=== PATIENT | female | born 1960 | race Caucasian/White ===

== ENCOUNTER → 2016-08-09 | Outpatient (CLI) | payer BC ==
[~2016-08-09] MED LIST: ADVIN10/60 INH; ALBU1AER9 INH; ASCO10003 PO; ASPI325T39 PO; B-COCAP2 PO; CHOL1TAB42 PO; CLB/200 PO; ESCI10TA17 PO; FOLI800T PO; HYDR-5688 PO; LISI-461 PO; MULT-506 PO; OMEGA 31000 MG PO; OXYSR10 PO; PANT1TAB48 PO; SIMV40TA2 PO; SYN125 PO
--- NOTE | 2016-08-09 12:52 | MAMMOGRAPHY REPORT ---
BILATERAL DIGITAL SCREENING MAMMOGRAM WITH CAD: 08/09/2016 CLINICAL HISTORY: Routine screening. Patient has no complaints. TECHNIQUE: Current study was also evaluated with a Computer Aided Detection (CAD) system. Bilatera l CC and MLO views were obtained. COMPARISON: Comparison is made to exams dated: 08/07/2015 mammogram, 08/02/2013 mammogram, 08/03/2014 m ammogram, 07/24/2012 mammogram, 07/19/2011 mammogram, and 07/10/2009 mammogram - [facility] enter. BREAST COMPOSITION: There are scattered areas of fibroglandular density in both breasts. FINDINGS: No suspicious masses, calcifications, or areas of architectural distortion are noted in e ither breast. There has been no significant interval change compared to prior exams. Focal asymmetr y in the right upper outer quadrant is stable. Again noted is a biopsy marker clip in the right upp er outer quadrant. A few scattered bilateral benign-appearing calcifications are stable. IMPRESSION: ACR BI-RADS CATEGORY 2: BENIGN There is no mammographic evidence of malignancy. A 1 year screening mammogram is recommended. The p atient will receive written notification of the results. Approximately 10% of breast cancers are not detected with mammography. A negative mammographic repor t should not delay biopsy if a clinically suggestive mass is present. Leigh Mendez M.D. /:08/09/2016 07:52:34 Viscose Cellar Worker: Harshil LEON)(Crystal), [facility] letter sent: Normal 1/2 BI-RADS Code: ACR BI-RADS Category 2: Benign
== END | disposition home or self-care (01) ==
LOC: C.MAMM 07:06
PROVIDERS: ATTEND Obstetrics & Gynecology
DX: Z12.31 Encounter for screening mammogram for malignant neoplasm of breast (principal)

== ENCOUNTER → 2016-08-14 | Outpatient (CLI) | payer BC ==
[2016-08-14 13:28] LABS: URINE APPEARANCE CLEAR (CLEAR); URINE BILIRUBIN NEG (NEG); URINE COLOR YELLOW; URINE NITRITE NEG (NEG); URINE PH 6.5 (4.5-7.5); URINE SPECIFIC GRAVITY 1.003 (1.000-1.030); UROBILINOGEN NEG (NEG)
[2016-08-14 13:31] LABS: MANUAL MICROSCOPIC REQUIRED? NO; REVIEW REQ? NO
== END | disposition home or self-care (01) ==
LOC: C.LABBC 10:00
PROVIDERS: ATTEND Internal Medicine
DX: R30.0 Dysuria (principal)

== ENCOUNTER → 2017-02-10 | Outpatient (CLI) | payer BC ==
[2017-02-10 09:45] LABS: ALT/SGPT 30 U/L (12-78); BLOOD UREA NITROGEN 29 mg/dl (7-18); BUN/CREATININE RATIO 32.1 (10-20); CALCIUM 8.4 mg/dl (8.5-10.1); CARBON DIOXIDE 28 mmol/L (21-32); CHLORIDE 108 mmol/L (98-107); CHOLESTEROL 205 mg/dl (0-200); CREATININE 0.89 mg/dl (0.60-1.20); GLUCOSE 88 mg/dl (70-99); SODIUM 143 mmol/L (136-145)
[2017-02-10 09:55] LABS: ALB/GLOB RATIO 1.2 (0.9-2); ALKALINE PHOSPHATASE 57 U/L (45-117); AST/SGOT 19 U/L (15-37); CHOLESTEROL/HDL RATIO 3.5; HDL CHOLESTEROL 58 mg/dl; LDL CHOLESTEROL CALCULATED 129 mg/dl; TRIGLYCERIDES 92 mg/dl (0-150); VERY LOW DENSITY LIPOPROT CALC 18 mg/dl
== END | disposition home or self-care (01) ==
LOC: C.LAB 06:42
PROVIDERS: ATTEND Internal Medicine
DX: Z11.59 Encounter for screening for other viral diseases (principal); E03.9 Hypothyroidism, unspecified

== ENCOUNTER 2017-06-17 06:54 | Inpatient (IN) | payer BC ==
[2017-05-22 12:22] VITALS: Ht 154.9 cm; Wt 85.0 kg
[2017-05-22 12:29] LABS: BASO % 1.4 %; COMPLETE YES; EOS % 4.3 %; HEMATOCRIT 41.6 % (37-47); IG% 0.3 %; LYMPH % 38.1 %; LYMPH ABS # 2.66 K/uL (1.2-3.4); MEAN CELL VOLUME 93.7 fL (80-100); MEAN CORPUSCULAR HGB CONC 34.1 g/dl (32-36); MEAN PLATELET VOLUME 9.9 fL (7.4-10.4); MONO % 8.3 %; NEUT % 47.6 %; PLATELET COUNT 297 K/uL (130-400); RED BLOOD COUNT 4.44 M/uL (4.2-5.4); WHITE BLOOD COUNT 6.98 K/uL (4.8-10.8)
[2017-05-22 12:31] LABS: URINE APPEARANCE CLEAR (CLEAR); URINE BILIRUBIN NEG (NEG); URINE COLOR YELLOW; URINE NITRITE NEG (NEG); URINE PH 6.5 (4.5-7.5); UROBILINOGEN NEG (NEG)
[2017-05-22 12:35] LABS: MANUAL MICROSCOPIC REQUIRED? NO; REVIEW REQ? NO
[2017-05-22 12:45] LABS: INR 0.9 (0.9-1.1); PARTIAL THROMBOPLASTIN RATIO 1.1; PROTHROMBIN TIME (PATIENT) 9.9 SECONDS (9.0-12.0)
--- NOTE | 2017-05-22 12:56 | PAT Medication Instructions ---
Service Date May 22, 2017. Current Home Medication List Acetaminophen (Tylenol Arthritis Ext Rel), 1,300 MG PO QAM Acetaminophen/Diphenhydramine (Tylenol Pm), 2 TAB PO HS Albuterol Sulfate (Proair Respiclick), 2 PUFFS INH PRN B-Complex W/Biotin & Folic Aci (Super B-Complex), 1 TAB PO QAM Celecoxib (CeleBREX), 200 MG PO QAM Cholecalciferol (Vitamin D3), 1 TAB PO QAM Escitalopram (Lexapro), 10 MG PO QAM Fluticasone Prop/Salmeterol (Advair Diskus 100/50 60 Dose), 1 PUFF INH QAM Folic Acid (Folic Acid), 1 TAB PO QAM Levothyroxine Sodium (Levothyroxine Sodium), 1 TAB PO QAM Pantoprazole (Protonix), 40 MG PO QPM Simvastatin (Zocor), 40 MG PO QPM [Calcium Citrate], 630 MG PO QPM [Lisinopril Hctz], 1 TAB PO QAM [Potassium], 99 MG PO Q2D Medication Instructions For Your Scheduled Surgery - Follow your surgeon's instructions for: Celecoxib (CeleBREX), 200 MG PO QAM - Hold the following medications the morning of surgery: [Lisinopril Hctz], 1 TAB PO QAM Cholecalciferol (Vitamin D3), 1 TAB PO QAM Folic Acid (Folic Acid), 1 TAB PO QAM [Potassium], 99 MG PO Q2D B-Complex W/Biotin & Folic Aci (Super B-Complex), 1 TAB PO QAM - Take the following medications the morning of surgery with a sip of water: Escitalopram (Lexapro), 10 MG PO QAM Levothyroxine Sodium (Levothyroxine Sodium), 1 TAB PO QAM Fluticasone Prop/Salmeterol (Advair Diskus 100/50 60 Dose), 1 PUFF INH QAM Albuterol Sulfate (Proair Respiclick), 2 PUFFS INH PRN (if needed, and bring with you the morning of the surgery) Acetaminophen (Tylenol Arthritis Ext Rel), 1,300 MG PO QAM (if needed, can take up to four hours before surgery) - Take the following medications as scheduled the night before surgery: Pantoprazole (Protonix), 40 MG PO QPM Simvastatin (Zocor), 40 MG PO QPM [Calcium Citrate], 630 MG PO QPM Albuterol Sulfate (Proair Respiclick), 2 PUFFS INH PRN (if needed) Acetaminophen/Diphenhydramine (Tylenol Pm), 2 TAB PO HS If you have any questions please call us at [phone] or [phone] or [phone]
[2017-05-22 13:22] LABS: ESTIMATED AVERAGE GLUCOSE 108 mg/dl; HA1C FLAG Normal (Normal)
[2017-05-22 14:01] LABS: BUN/CREATININE RATIO 20.7 (10-20); CREATININE 0.95 mg/dl (0.60-1.20); POTASSIUM 3.7 mmol/L (3.5-5.1)
--- NOTE | 2017-05-22 14:02 | DIAGNOSTIC IMAGING REPORT ---
CHEST PREADMISSION(PA/LAT) HISTORY: 56 years-old Female PAT preoperative exam. No acute chest complaints. History of asthma. COMPARISON: Chest radiograph 11/22/2013 TECHNIQUE: Frontal and lateral views of the chest FINDINGS: Cardiac silhouette is upper limits of normal. There is no pneumothorax, pleural effusion, focal airspace consolidation or overt pulmonary edema. The bones of the chest are grossly intact. Multilevel degenerative changes of the spine are noted. Partially imaged fusion hardware of the lumbar spine. There is moderate volume of formed colonic stool within the imaged abdomen. IMPRESSION: No acute cardiopulmonary process. The above report was generated using voice recognition software. It may contain grammatical, syntax or spelling errors. Electronically signed by: Jason Alva M.D. 05/22/2017 2:01 PM Dictated Date/Time: 05/22/2017 2:00 PM
--- NOTE | 2017-05-27 16:32 | HISTORY & PHYSICAL EXAMINATION ---
DATE OF ADMISSION: 06/17/2017 CHIEF COMPLAINT: Left knee pain. HISTORY OF PRESENT ILLNESS: Ms. Sarmiento is a 56-year-old female with a 5+ year history of pain in her left knee. The patient states her pain has been worse for the last year. She rates her pain at 5/10. She has pain with her daily activities. She has limited standing and walking tolerance. Pain is worse with weightbearing. The patient has failed injections, bracing, PT, Tylenol, Celebrex and previous knee arthroscopy. She has failed conservative treatment and is now ready to proceed with left knee replacement. PAST MEDICAL HISTORY: Hypertension, hypercholesterolemia, heart murmur, thyroid disease, anxiety, acid reflux, and osteoarthritis. She denies heart disease, diabetes or DVT. PAST SURGICAL HISTORY: Hysterectomy, x2, multiple knee arthroscopies, spinal fusion, carpal tunnel release and right TKA. SOCIAL HISTORY: The patient denies alcohol or tobacco use. She lives in a 2-story home. She is functional on one floor. She is and works as a computer science professor. FAMILY HISTORY: Negative for DVT. MEDICATIONS: L-thyroxine 112 mcg daily, Celebrex 200 mg daily, citalopram 10 mg daily, lisinopril/HCTZ 10/12.5 mg daily, simvastatin 40 mg daily, pantoprazole 40 mg daily, calcium 630 mg daily, vitamin B super complex 1 daily, D3 at 1000 units daily, potassium 99 mg every other day, Tylenol Arthritis p.r.n. Tylenol PM p.r.n., and ProAir p.r.n. ALLERGIES: IVP DYE. REVIEW OF SYSTEMS: See HPI. Ten other systems reviewed, all negative. PHYSICAL EXAMINATION: VITAL SIGNS: Height 5 feet 1 inch, weight 186 pounds, and BMI is 35. GENERAL: This is a well-developed and well-nourished female, who is alert and oriented x3. Mood and affect are appropriate. HEENT: Normocephalic and atraumatic. Mucous membranes are moist and intact. NECK: Supple without lymphadenopathy. HEART: Regular rate and rhythm without murmurs, rubs or gallops. LUNGS: Clear to auscultation without wheezes or rhonchi. ABDOMEN: Soft and nontender. Bowel sounds are equal and active. EXTREMITIES: No ecchymosis, redness or warmth. She has neutral alignment. Range of motion is from 0-115 degrees with +1 laxity. She is neurovascularly intact with +5/5 strength. She has medial joint line tenderness. No distal edema. X-RAY EXAMINATION: AP and lateral views show joint space narrowing and osteophyte formation. IMPRESSION: Degenerative joint disease, left knee. PLAN: The patient will be admitted for a left total knee arthroplasty. We will plan on aspirin for DVT prophylaxis. The patient will have [facility] for home physical therapy. PCP is Dr. Velazquez.
[2017-06-17] VITALS (8 sets, daily range): BP systolic 100–135; BP diastolic 62–90; PULSE 57–80; TEMP 36.4–37; O2SAT 90–97
[~2017-06-17] VITALS: Ht 154.9 cm; Wt 85.0 kg
[2017-06-17] MEDS: TRANEXAMIC ACID INJ 1,000 MG in SYRINGE 0 ML IV SCH ×2 (06:30→08:51)
[~2017-06-17 06:54] MED LIST changes: +ACET1TAB84 PO; +ACETAMINOPHEN 500 MG TAB PO SCH; +ALBU18002 INH; -ALBU1AER9 INH; -ASCO10003 PO; -ASPI325T39 PO; +B-CO1CAP5 PO; -B-COCAP2 PO; +BUPIVACAINE 0.5 % 5 MG/1 ML PF 10ML VIAL ONE; +CALCIUM CITRATE PO; +CEFAZOLIN 2000MG IV PUSH 10 ML IV SCH; +CHOL1000 PO; -CHOL1TAB42 PO; +CeleBREX 200 MG CAP PO SCH; +DEXAMETHASONE 4 MG TAB PO SCH; +DIPH-437 PO; +FAMOTIDINE 20 MG TAB PO SCH; +GABAPENTIN 300 MG CAP PO SCH; -HYDR-5688 PO; +LACTATED RINGER'S 1000ML 1,000 ML IV SCH; +LACTATED RINGER'S 1000ML 500 ML IV ONE; +LACTATED RINGER'S 1000ML IV SCH; +LEVO112T4 PO; -LISI-461 PO; +LISINOPRIL HCTZ PO; +METOCLOPRAMIDE HCL 10 MG TAB PO SCH; -MULT-506 PO; -OMEGA 31000 MG PO; -OXYSR10 PO; +PANT1TAB3 PO; -PANT1TAB48 PO; +POTASSIUM PO; +ROPIVACAINE 0.5% 5 MG/ML 30 ML VIAL ONE; +ROPIVACAINE 5MG/ML 30 ML 150 MG, BUPIVACAINE 0.5% MPF INJ 30 ML, EpINEphrine HCL INJ 0.... INFIL SCH; -SYN125 PO
--- NOTE | 2017-06-17 07:08 | History & Physical Bridge Note ---
H&P Re-Evaluation Bridge Note: I have examined the patient, reviewed the History & Physical and in the interval since the performance of the History & Physical I have noted the following changes of clinical significance: No changes noted
[2017-06-17] MEDS ORDERED: PHENYLEPHRINE 100MCG/ML 5ML SYR IV PRN (07:45)
[2017-06-17] MEDS ORDERED: ATROPINE SULFATE 0.1 MG/ML 5ML SYR IV PRN (07:45)
[2017-06-17] MEDS ORDERED: ONDANSETRON INJ 2 MG/ML 2 ML VIAL IV PRN ×2 (07:45→11:15)
[2017-06-17] MEDS ORDERED: EpHEDrine SULFATE INJ 50 MG/ML AMP IV PRN (07:45)
[2017-06-17] MEDS ORDERED: MIDAZOLAM HCL 1 MG/ML 2ML VIAL ONE ×3 (08:29→08:51)
[2017-06-17] MEDS ORDERED: FENTANYL CITRATE INJ 50 MCG/1 ML 2 ML VIAL ONE (08:30)
[2017-06-17] MEDS ORDERED: ORTHO JOINT ANESTHETIC ONE (09:20)
[2017-06-17] MEDS ORDERED: POVIDONE-IODINE OP SOLN 30 ML BTL ONE (09:20)
[2017-06-17] MEDS ORDERED: BACITRACIN 50000 UNIT VIAL ONE (09:20)
[2017-06-17] MEDS ORDERED: PROPOFOL IV EMULSION 10 MG/ML 20 ML VIAL IV ONE (10:11)
--- NOTE | 2017-06-17 10:27 | [facility] Operative Report ---
Operative Report Operative Date Jun 17, 2017. Pre-Operative Diagnosis Left knee degenerative joint disease Post-Operative Diagnosis Left knee degenerative joint disease Procedure(s) Performed Left total knee arthroplasty utilizing Mendes & Nephew journey to patient-matched total knee arthroplasty size 4 femur 3 tibia 11 poly-[address] Stephane Grant Roentgenology Teacher Surgeon(s) Caio Toro PA-C Estimated Blood Loss 10cc Findings Severe end-stage DJD with valgus alignment subchondral cystic changes sclerosus marginal osteophytes Nourse wants to conservative therapy including physical therapy anti-inflammatories relative rest activity modification Specimens A. left knee bone and tissue Complication(s) None Disposition Recovery Room / PACU Indications Patient presents with valgus alignment left knee with severe end-stage DJD bone- on-bone the bone changes subchondral cystic changes portal osteophytes sclerosis fillable times a conservative management including viscus of dictation bracing corticosteroids presents for total knee arthroplasty Description of Procedure After proper prepping and draping of the left lower extremity anterior midline incision was made over the region of the extensor extensor mechanism after meticulous hemostasis was obtained and maintained in subcutaneous tissues a medial parapatellar incision was made The patella was subluxed lateralward the medial lateral gutter were cleaned from any hypertrophic synovitis and scar tissue of the distal femoral block was placed and the distal femoral osteotomy cut was made subsequently the chamfers anterior and posterior osteotomy cuts were made utilizing the 4-in-1 block the tibia was subsequently subluxed anteriorward medial and ateral meniscal remnants were excised in their entirety remnants of the anterior and posterior cruciate ligaments were excised in their entirety excellent exposure of the proximal tibia was obtained the tibial osteotomy guide was placed on the proximal tibial osteotomy cut was made once again the knee was irrigated with copious amounts of sterile saline solution the patella was subsequently everted lateralward thickened scar tissue around the patella was removed the patella was subsequently cut utilizing a freehand technique and was drilled prepared for final preparation and placement of patella socially flexion-extension gaps were checked and the equal and symmetric trials were placed to the appropriate femoral and tibial trials with poly-spacer being placed for equal flexion and extension gaps and full range of motion including extension to 0 and flexion to 140 the trial components after having been taken to recovery range of motion was subsequently removed meticulous hemostasis was obtained and maintained subsequently a knee block injection of joint cocktail including ropivacaine 0.5% 150 mg. Bupivacaine 0.5 % epinephrine 1-200,030 mL's toradol 30 mg dexamethasone 4 mg ketamine 10 mg clonidine 100 micrograms normal saline solution 30 mg was infiltrated into the soft tissues of the posterior knee medial lateral gutters and periosteal synovium special attention was paid to protect neurovascular structures at all times subsequently trial components having been removed the knee was irrigated with sterile saline solution. debris was removed the proximal tibia was subsequently prepared and was made ready for the placement of the tibial component tibial component was also cemented and tamped into position the femoral component was subsequently placed and cemented in the position the patellar component was subsequently cemented in position because hemostasis once again obtained and maintained wound having been thoroughly irrigated with debridement and debridement lavage was performed as well as a medial parapatellar incision closed with #1 Vicryl in interrupted fashion subcutaneous was closed with #2 Vicryl skin was closed with skin clips. PA-C was necessary for prepping and drapping as well as wound closure of deep fascia Sub cutaneous tissue and skin and was necessary for the case. A sterile compressive dressing was placed patient was taken to recovery in stable condition of report dictated by Rudy I attest to the content of the Intraoperative Record and any orders documented therein. Any exceptions are noted below. I attest to the content of the Intraoperative Record and any orders documented therein. Any exceptions are noted below.
[2017-06-17] MEDS: HYDROmorphone INJ 2 MG/ML SYR/VIAL IV PRN ×2 (11:14→11:25)
[2017-06-17] MEDS ORDERED: ALUMINUM/MAGNESIUM/SIMETH (MAALOX MAX) 30 ML UDC PO PRN (11:15)
[2017-06-17] MEDS ORDERED: ALBUTEROL HFA 8 GM INHALER INH PRN (11:15)
[2017-06-17] MEDS ORDERED: MAGNESIUM HYDROXIDE SUSP 30 ML UDC PO PRN (11:15)
[2017-06-17] MEDS ORDERED: KETOROLAC TROMETHAMINE 30 MG/ML VIAL IV. PRN (11:15)
[2017-06-17] MEDS ORDERED: BISACODYL 10 MG SUPP PR PRN (11:15)
[2017-06-17] MEDS ORDERED: TRAMADOL HCL 50 MG TAB PO PRN (11:15)
[2017-06-17] MEDS ORDERED: MoRPHine SULFATE 2 MG/ML CARP IV PRN (11:15)
[2017-06-17] MEDS ORDERED: SOD PHOSPHATE/SOD BIPHOSPHATE ENEMA 132 ML BTL PR PRN (11:15)
--- NOTE | 2017-06-17 11:42 | Anesthesiology Progress Note ---
Anesthesia Post Op Note Date & Time Jun 17, 2017 at 11:42 Vital Signs Pain Intensity: 4 Vital Signs Past 12 Hours Date Time Temp Pulse Resp B/P (MAP) Pulse Ox O2 Delivery O2 Flow Rate FiO2 06/17/17 11:38 37.1 06/17/17 11:37 69 16 06/17/17 11:37 66 16 93 06/17/17 11:36 114/87 06/17/17 11:32 65 16 06/17/17 11:32 66 16 92 06/17/17 11:31 107/84 06/17/17 11:29 66 16 06/17/17 11:29 66 16 95 06/17/17 11:26 118/89 06/17/17 11:24 80 16 95 06/17/17 11:24 78 16 06/17/17 11:21 121/79 06/17/17 11:19 70 12 06/17/17 11:19 71 12 95 06/17/17 11:18 68 16 96 06/17/17 11:18 70 16 06/17/17 11:16 129/90 06/17/17 11:13 71 13 97 06/17/17 11:13 77 13 06/17/17 11:11 117/79 06/17/17 11:08 68 11 98 06/17/17 11:08 69 11 06/17/17 11:06 126/65 06/17/17 11:04 123/86 06/17/17 11:03 78 92 06/17/17 11:03 78 06/17/17 11:03 37.0 74 16 123/86 95 Oxymask 10 06/17/17 07:55 37 76 18 125/79 97 Room Air Notes Mental Status: alert / awake / arousable, participated in evaluation Pt Amnestic to Procedure: Yes Nausea / Vomiting: adequately controlled Pain: adequately controlled Airway Patency, RR, SpO2: stable & adequate BP & HR: stable & adequate Hydration State: stable & adequate Anesthetic Complications: no major complications apparent
--- NOTE | 2017-06-17 11:52 | DIAGNOSTIC IMAGING REPORT ---
L KNEE 1 OR 2 VIEWS ROUTINE CLINICAL HISTORY: Degenerative arthritis. Postoperative study COMPARISON: None. DISCUSSION: There are postsurgical changes of a total left knee arthroplasty and patellar resurfacing. The femoral and tibial components appear well seated. There is an overlying surgical drain. There is air in soft tissues consistent with history of recent surgery. IMPRESSION: Postsurgical changes of a total left knee arthroplasty. Electronically signed by: Melecio Walker M.D. 06/17/2017 11:51 AM Dictated Date/Time: 06/17/2017 11:50 AM
[2017-06-17] MEDS ORDERED: MoRPHine SULFATE 10 MG/ML CARP/VIAL IV PRN (13:30)
[2017-06-17] MEDS ORDERED: MoRPHine SULFATE 4 MG/ML 1 ML CARP\\VIAL IV PRN (13:30)
[2017-06-17] MEDS: D5W AND 1/2NSS + 20MEQ KCL 1,000 ML IV SCH ×2 (14:44→23:57)
[2017-06-17] MEDS: POTASSIUM - ORDER AWAITING ACTION SCH ×2 (16:00→23:56)
[2017-06-17] MEDS: ACETAMINOPHEN 500 MG TAB PO SCH ×2 (16:10→23:56)
[2017-06-17] MEDS: CEFAZOLIN IV 2,000 MG in SYRINGE 0 ML IV SCH (17:46)
[2017-06-17] MEDS: SIMVASTATIN 40 MG TAB PO SCH (21:11)
[2017-06-17] MEDS: DOCUSATE SODIUM 100 MG CAP PO SCH (21:11)
[2017-06-17] MEDS: ASPIRIN 81 MG ECTAB PO SCH (21:11)
[2017-06-17] MEDS: CALCIUM CITRATE 950 MG TAB PO SCH (21:11)
[2017-06-17] MEDS: SENNA 8.6 MG TAB PO SCH (21:11)
[2017-06-17] MEDS: PANTOprazole SOD 40 MG TAB PO SCH (21:11)
[2017-06-17] MEDS: ZOLPIDEM TARTRATE 5 MG TAB PO PRN (23:55)
[2017-06-18] VITALS (7 sets, daily range): BP systolic 110–133; BP diastolic 69–82; PULSE 37–68; TEMP 36.4–37; O2SAT 95–99
[2017-06-18] MEDS: CEFAZOLIN IV 2,000 MG in SYRINGE 0 ML IV SCH (02:15)
[2017-06-18] MEDS: LEVOTHYROXINE 112 MCG TAB PO SCH (05:44)
[2017-06-18 06:04] LABS: HEMATOCRIT 33.9 % (37-47); MEAN CELL VOLUME 92.9 fL (80-100); MEAN CORPUSCULAR HGB CONC 33.3 g/dl (32-36); MEAN PLATELET VOLUME 9.8 fL (7.4-10.4); PLATELET COUNT 248 K/uL (130-400); RED BLOOD COUNT 3.65 M/uL (4.2-5.4); WHITE BLOOD COUNT 11.21 K/uL (4.8-10.8)
[2017-06-18 06:09] LABS: INR 0.9 (0.9-1.1); PROTHROMBIN TIME (PATIENT) 9.9 SECONDS (9.0-12.0)
[2017-06-18 06:34] LABS: BUN/CREATININE RATIO 21.6 (10-20); CREATININE 0.85 mg/dl (0.60-1.20)
[2017-06-18] MEDS: POTASSIUM - ORDER AWAITING ACTION SCH ×2 (08:00→15:44)
[2017-06-18] MEDS: ACETAMINOPHEN 500 MG TAB PO SCH ×2 (08:43→16:35)
[2017-06-18] MEDS: ESCITALOPRAM OXALATE 10 MG TAB PO SCH (08:43)
[2017-06-18] MEDS: DOCUSATE SODIUM 100 MG CAP PO SCH ×2 (08:44→21:54)
[2017-06-18] MEDS: FLUTICASONE/SALMETEROL 100/50 (ADVAIR) 14 PUFF/1 INHALER INH SCH (08:44)
[2017-06-18] MEDS: LISINOPRIL/HCTZ 10/12.5MG TAB PO SCH (08:44)
[2017-06-18] MEDS: VITAMIN B COMPLEX TAB PO SCH (08:44)
[2017-06-18] MEDS: MULTIVITAMIN TAB PO SCH (08:45)
[2017-06-18] MEDS: ASPIRIN 81 MG ECTAB PO SCH ×2 (08:45→21:54)
[2017-06-18] MEDS: OXYCODONE HCL IR 5 MG TAB (IMMEDIATE RELEASE) PO PRN ×3 (08:48→21:54)
--- NOTE | 2017-06-18 09:36 | Orthopedic Progress Note ---
Orthopedic Progress Note Date of Service Jun 18, 2017. Subjective Post OP Day: 1 Reports: feeling well, pain controlled w PO medications, Denies: complaints, chest pain, SOB, nausea / vomiting, light headedness, calf pain Objective calves soft nontender, N/V intact, capillary refill less than 2 sec., dressing C /D/I, A&O x3, toes mobile Date Time Temp Pulse Resp B/P (MAP) Pulse Ox O2 Delivery O2 Flow Rate FiO2 06/18/17 09:11 97 Room Air 06/18/17 08:07 36.4 64 18 114/78 (90) 97 Room Air 06/18/17 07:18 Room Air 06/18/17 03:22 36.8 62 16 110/69 (83) 96 Room Air 06/18/17 00:00 Room Air 06/17/17 23:46 36.7 66 16 105/62 (76) 92 Room Air 06/17/17 19:27 36.9 69 16 100/63 (75) 92 Room Air 06/17/17 15:15 36.6 80 18 110/72 (85) 92 Room Air 06/17/17 13:59 75 18 113/77 (89) 97 Nasal Cannula 2.0 06/17/17 13:01 70 16 135/86 (102) 95 Nasal Cannula 2.0 06/17/17 12:19 57 16 127/82 (97) 96 Nasal Cannula 2.0 06/17/17 12:00 90 Nasal Cannula 2.0 06/17/17 12:00 Nasal Cannula 2.0 06/17/17 12:00 36.4 65 16 135/90 (105) 90 Nasal Cannula 2.0 06/17/17 11:51 124/72 06/17/17 11:48 66 16 06/17/17 11:48 65 16 93 06/17/17 11:46 129/94 06/17/17 11:43 69 16 94 06/17/17 11:43 68 16 06/17/17 11:41 129/89 06/17/17 11:38 70 16 94 06/17/17 11:38 68 16 06/17/17 11:38 37.1 06/17/17 11:37 69 16 06/17/17 11:37 66 16 93 06/17/17 11:36 114/87 06/17/17 11:32 65 16 06/17/17 11:32 66 16 92 06/17/17 11:31 107/84 06/17/17 11:29 66 16 06/17/17 11:29 66 16 95 06/17/17 11:26 118/89 06/17/17 11:24 80 16 95 06/17/17 11:24 78 16 06/17/17 11:21 121/79 06/17/17 11:19 70 12 06/17/17 11:19 71 12 95 06/17/17 11:18 68 16 96 06/17/17 11:18 70 16 06/17/17 11:16 129/90 06/17/17 11:13 71 13 97 06/17/17 11:13 77 13 06/17/17 11:11 117/79 06/17/17 11:08 68 11 98 06/17/17 11:08 69 11 06/17/17 11:06 126/65 06/17/17 11:04 123/86 06/17/17 11:03 78 92 06/17/17 11:03 78 06/17/17 11:03 37.0 74 16 123/86 95 Oxymask 10 Laboratory Results 24 Hours: Test 06/18/17 05:38 Hematocrit 33.9 % Hemoglobin 11.3 g/dL Prothromb Time International Ratio 0.9 Prothrombin Time 9.9 SECONDS Assessment & Plan Assessment: POD #1, Left TKA Plan: PT/ OT DVT proph- ASA D/C planning- Home w HH As per medicine. Inhouse Planning Pain Management: Celebrex, Ultram, Morphine, PO Tylenol, Oxy IR DVT Prophylaxis: TEDs, SCDs, ASA Discharge Planning Discharge Planning: home with home health Pain Management: Celebrex, PO Tylenol, Oxy IR DVT Prophylaxis: TEDs, ASA Therapy: Physical Therapy, Occupational Therapy
[2017-06-18] MEDS: D5W AND 1/2NSS + 20MEQ KCL 1,000 ML IV SCH (09:59)
--- NOTE | 2017-06-18 12:55 | Anesthesiology Progress Note ---
Anesthesia Post Op Note Date & Time Jun 18, 2017 at 12:54 Vital Signs Pain Intensity: 0.0 Vital Signs Past 12 Hours Date Time Temp Pulse Resp B/P (MAP) Pulse Ox O2 Delivery O2 Flow Rate FiO2 06/18/17 11:58 36.6 66 18 124/82 (96) 98 Room Air 06/18/17 10:00 68 99 06/18/17 09:11 97 Room Air 06/18/17 08:07 36.4 64 18 114/78 (90) 97 Room Air 06/18/17 07:18 Room Air 06/18/17 03:22 36.8 62 16 110/69 (83) 96 Room Air Notes Mental Status: alert / awake / arousable, participated in evaluation Pt Amnestic to Procedure: Yes Nausea / Vomiting: adequately controlled Pain: adequately controlled Airway Patency, RR, SpO2: stable & adequate BP & HR: stable & adequate Hydration State: stable & adequate Neuraxial Anesthesia: sensory block resolved Anesthetic Complications: no major complications apparent
--- NOTE | 2017-06-18 13:31 | Discharge Instructions ---
Discharge Instructions Date of Service Jun 18, 2017. Admission Reason for Admission: Left Knee Osteoarthritis Discharge Discharge Diagnosis / Problem: left TKA Discharge Goals Goal(s): Decrease discomfort, Improve function, Increase independence Activity Recommendations Activity Limitations: as noted below Weightbearing Status: Left weightbearing (as tolerated) . Instructions / Follow-Up Instructions / Follow-Up ACTIVITY RECOMMENDATIONS: SELF CARE INSTRUCTIONS AFTER TOTAL KNEE REPLACEMENT A. You may need to continue a physical therapy program after discharge from the hospital. There are several options available to you. Your doctor will assist you in selecting the best one for you. 1. An out-patient facility 2 to 3 times a week for therapy or home therapy. 2. Continue working on all exercises taught to you in the hospital. Your goals should be to increase bending of your knee to 90 degrees and beyond and to fully straighten your knee. B. You may progress at your own pace from walking with a walker or crutches to a cane; then to no assistive devices. C. Make walking a part of your daily routine. Be up as much as comfortable with rest periods throughout the day. Rest with leg elevation is very important. Use the ice wrap frequently for the first 3-4 weeks. D. There are no restrictions on activities. You may ride in a car, shop, participate in membership sales manager and all social activities. E. Wear the long elastic stockings (KENNETH hose) 20 hours a day for 2 weeks after surgery. They can be removed several times a day for laundering and for a bath. F. You may shower, no tub baths until cleared by your doctor. SPECIAL CARE INSTRUCTIONS: VERY IMPORTANT TO READ AND REVIEW A. There are a few signs you need to watch for after you are home. Call [facility] if you notice any of the followin. Increased severe knee pain. Some pain is expected especially when you exercise. 2. Increased swelling in your leg or knee; pain or swelling of the calf muscle in either lower leg. 3. Any fluid drainage from the incision. 4. Shortness of breath or chest pain. B. Please call [facility] at if you have any concerns or questions about your operation or recovery. The doctor or his nurse will return your call promptly. C. You must take antibiotics before dental work, bladder, bowel or other surgery. Your doctor will provide you with a permanent care to carry describing this precaution. IMPORTANT: * REMEMBER TO TAKE ASPIRIN, 81 MG, TWICE DAILY FOR 4 WEEKS UNLESS OTHERWISE DIRECTED. THIS IS YOUR BLOOD THINNER. * HIGH RISK PATIENTS MAY BE PRESCRIBED A STRONGER BLOOD THINNER. THIS WILL BE PROVIDED AT DISCHARGE. * CALL IF INCREASED PAIN, REDNESS, DRAINAGE OR FEVER GREATER THAT 101. * WEAR KENNETH HOSE 20 HOURS PER DAY FOR 2 WEEKS. * DERMABOND Prineo- This is a mesh tape dressing that is covered with glue. It should remain in place until the incision is properly healed, usually 10-14 days. This dressing is designed to naturally slough off. You may trim the excess mesh tape as it peels off. Incision may be briefly wet in a shower. Dry immediately by blotting with a clean, dry towel. Do not bath or swim until instructed by your doctor. Do not scratch, rub, or pick at the dressing. Do not apply any topical ointments or lotions until dressing is completely removed and/or instructed by your doctor. There may be a small piece of suture material at one end of your incision. Do not pull or trim this. If it is bothersome or catching on clothing, you may cover it with a band-aid. * YOU MAY HAVE A LARGE BAND-AID LIKE DRESSING (SILVERON). THIS WILL REMAIN ON YOUR INCISION FOR 7 DAYS, THEN CAN BE REMOVED. IF INCISION IS LEAKING THROUGH DRESSING, CALL THE OFFICE . FOLLOW UP VISIT: If appointment is not already scheduled: Please call [facility] to make a follow-up appointment for 2 weeks after your surgery at . Current Hospital Diet Patient's current hospital diet: Regular Diet Discharge Diet Recommended Diet: Regular Diet Procedures Procedures Performed: Left total knee arthroplasty utilizing Mendes & Nephew journey to patient-matched total knee arthroplasty size 4 femur 3 tibia 11 poly-29 oval patella Pending Studies Studies pending at discharge: no Laboratory Results Hemoglobin A1c Test 05/22/17 12:15 Range/Units Estimated Average Glucose 108 mg/dl Hemoglobin A1c 5.4 4.5-5.6 % Medical Emergencies . Who to Call and When: Medical Emergencies: If at any time you feel your situation is an emergency, please call 911 immediately. . Non-Emergent Contact Non-Emergency issues call your: Primary Care Provider, Surgeon . "Provider Documentation" section prepared by Caio Toro. . VTE Core Measure Inpt VTE Proph given/why not?: Other Anticoagulation (ASA 81mg po bid x 1 month ), TAmos Khan, SCD's [place] Drug Monitoring Program Search Results: patient reviewed within database, no issues identified
[2017-06-18] MEDS: PANTOprazole SOD 40 MG TAB PO SCH (21:54)
[2017-06-18] MEDS: SENNA 8.6 MG TAB PO SCH (21:54)
[2017-06-18] MEDS: SIMVASTATIN 40 MG TAB PO SCH (21:54)
[2017-06-18] MEDS: ZOLPIDEM TARTRATE 5 MG TAB PO PRN (21:54)
[2017-06-18] MEDS: CeleBREX 200 MG CAP PO SCH (21:55)
[2017-06-18] MEDS: CALCIUM CITRATE 950 MG TAB PO SCH (21:55)
[2017-06-19] MEDS: ACETAMINOPHEN 500 MG TAB PO SCH ×2 (00:50→07:57)
[2017-06-19] MEDS: LEVOTHYROXINE 112 MCG TAB PO SCH (06:01)
[2017-06-19 07:25] VITALS: BP 146/97; PULSE 74; TEMP 36.8; O2SAT 95
[2017-06-19] MEDS: POTASSIUM - ORDER AWAITING ACTION SCH ×2 (07:57)
[2017-06-19] MEDS: OXYCODONE HCL IR 5 MG TAB (IMMEDIATE RELEASE) PO PRN ×2 (07:59→12:52)
--- NOTE | 2017-06-19 08:24 | Orthopedic Progress Note ---
Orthopedic Progress Note Date of Service Jun 19, 2017. Subjective Post OP Day: 2 Reports: feeling well, Denies: complaints Objective calves soft nontender, N/V intact, incision C/D/I, A&O x3, toes mobile Date Time Temp Pulse Resp B/P (MAP) Pulse Ox O2 Delivery O2 Flow Rate FiO2 06/19/17 07:25 36.8 74 16 146/97 (113) 95 Room Air 06/18/17 23:00 37.0 67 16 117/81 (93) 95 Room Air 06/18/17 19:20 Room Air 06/18/17 15:41 36.5 60 16 133/82 (99) 97 Room Air 06/18/17 11:58 36.6 66 18 124/82 (96) 98 Room Air 06/18/17 10:00 68 99 06/18/17 09:11 97 Room Air Assessment & Plan Assessment: POD #2, Left TKA Plan: PT/ OT DVT proph- ASA D/C planning- Home w HH As per medicine. plan for dc today Inhouse Planning Pain Management: Celebrex, Ultram, Morphine, PO Tylenol, Oxy IR DVT Prophylaxis: TEDs, SCDs, ASA Discharge Planning Discharge Planning: home with home health Pain Management: Celebrex, PO Tylenol, Oxy IR DVT Prophylaxis: TEDs, ASA Therapy: Physical Therapy
[2017-06-19] MEDS ORDERED: ACET-24 PO (08:29)
[2017-06-19] MEDS ORDERED: RXC5 PO (08:29)
[2017-06-19] MEDS ORDERED: CLB/200 PO ×2 (08:29→08:31)
[2017-06-19] MEDS ORDERED: ASPEC81 PO (08:29)
[2017-06-19] MEDS ORDERED: SENN-61 PO (08:29)
[2017-06-19] MEDS: LISINOPRIL/HCTZ 10/12.5MG TAB PO SCH (09:08)
[2017-06-19] MEDS: VITAMIN B COMPLEX TAB PO SCH (09:08)
[2017-06-19] MEDS: ESCITALOPRAM OXALATE 10 MG TAB PO SCH (09:08)
[2017-06-19] MEDS: MULTIVITAMIN TAB PO SCH (09:08)
[2017-06-19] MEDS: DOCUSATE SODIUM 100 MG CAP PO SCH (09:08)
[2017-06-19] MEDS: FLUTICASONE/SALMETEROL 100/50 (ADVAIR) 14 PUFF/1 INHALER INH SCH (09:09)
[2017-06-19] MEDS: ASPIRIN 81 MG ECTAB PO SCH (09:09)
[2017-06-19] MEDS: CeleBREX 200 MG CAP PO SCH (09:09)
[2017-06-19 12:21] VITALS: BP 146/97; PULSE 74; TEMP 36.8; O2SAT 95
--- NOTE | 2017-06-19 18:21 | Discharge Summary ---
Orthopedic Discharge Summary Admission Date/Reason Jun 17, 2017 at 08:24 Left Knee Osteoarthritis. Discharge Date/Disposition Jun 19, 2017 Home with services Diagnosis Principal Diagnosis: left knee osteoarthritis Procedure(s) Performed Left total knee arthroplasty utilizing [employer] journey to patient-matched total knee arthroplasty size 4 femur 3 tibia 11 poly-29 oval patella Consultations NONE Medication Reconciliation New Medications: Acetaminophen (Sb Non-Aspirin Extra Stre) 500 Mg Tab 1000 MG PO Q8H for 21 Days, #126 TAB Aspirin (Aspirin EC Low Dose) 81 Mg Ectab 81 MG PO BID for 30 Days Oxycodone HCl (Oxycodone HCl) 5 Mg Tab 5-10 MG PO Q4H PRN for Pain, #60 TAB Senna (Senokot) 8.6 Mg Tab 17.2 MG PO HS, #30 TAB Continued Medications: Albuterol Sulfate (Proair Respiclick) 108 Mcg/Act Aer 2 PUFFS INH PRN B-Complex W/Biotin & Folic Aci (Super B-Complex) 1 Cap Cap 1 TAB PO QAM Celecoxib (CeleBREX) 200 Mg Cap 200 MG PO BID for 30 Days, #60 CAP (This prescription has been renewed) after 30 days, you may resume your once daily dosing Cholecalciferol (Vitamin D3) 1,000 Unit Tab 1 TAB PO QAM for 90 Days, #90 TAB 3 Refills Escitalopram (Lexapro) 10 Mg Tab 10 MG PO QAM, 0 Refills Fluticasone Prop/Salmeterol (Advair Diskus 100/50 60 Dose) 1 Ea Aerp 1 PUFF INH QAM, INHALER Folic Acid (Folic Acid) 800 Mcg Tab 1 TAB PO QAM Levothyroxine Sodium (Levothyroxine Sodium) 112 Mcg Tab 1 TAB PO QAM for 90 Days, #90 TAB 3 Refills Pantoprazole (Protonix) 40 Mg Tab 40 MG PO QPM Simvastatin (Zocor) 40 Mg Tab 40 MG PO QPM, TAB [Calcium Citrate] () 630 MG PO QPM [Lisinopril Hctz] () 1 TAB PO QAM 10/12.5 MG [Potassium] () 99 MG PO Q2D PM Discontinued Medications: Acetaminophen (Tylenol Arthritis Ext Rel) 650 Mg Cplt 1300 MG PO QAM, CAP Acetaminophen/Diphenhydramine (Tylenol Pm) 500 Mg/25 Mg Tab 2 TAB PO HS, TAB Admission Physical Exam As per Admitting History & Physical. Hospital Course Patient was a same day admission after undergoing a successful left TKA. she tolerated the procedure well. Post-operatively, her activity was progressed and well tolerated. Please refer to daily progress notes and PT notes for complete details. After exam on 06/19/17, patient felt to be stable for discharge home with HHPT. Patient will f/u in the office in 2 weeks for further evaluation including x-rays and incision check, sooner if having any issues or concerns. Below are pertinent labs/studies during their hospital stay: Last Vital Signs Documentation Date Time Temp Pulse Resp B/P (MAP) Pulse Ox O2 Delivery O2 Flow Rate FiO2 06/19/17 12:21 36.8 74 16 95 Room Air 06/19/17 07:25 146/97 (113) 06/17/17 13:59 2.0 Last Resulted CBC 06/18/17 05:38 Last Resulted BMP 06/18/17 05:38 Discharge Instructions ACTIVITY RECOMMENDATIONS: SELF CARE INSTRUCTIONS AFTER TOTAL KNEE REPLACEMENT A. You may need to continue a physical therapy program after discharge from the hospital. There are several options available to you. Your doctor will assist you in selecting the best one for you. 1. An out-patient facility 2 to 3 times a week for therapy or home therapy. 2. Continue working on all exercises taught to you in the hospital. Your goals should be to increase bending of your knee to 90 degrees and beyond and to fully straighten your knee. B. You may progress at your own pace from walking with a walker or crutches to a cane; then to no assistive devices. C. Make walking a part of your daily routine. Be up as much as comfortable with rest periods throughout the day. Rest with leg elevation is very important. Use the ice wrap frequently for the first 3-4 weeks. D. There are no restrictions on activities. You may ride in a car, shop, participate in insurance claims processor and all social activities. E. Wear the long elastic stockings (KENNETH hose) 20 hours a day for 2 weeks after surgery. They can be removed several times a day for laundering and for a bath. F. You may shower, no tub baths until cleared by your doctor. SPECIAL CARE INSTRUCTIONS: VERY IMPORTANT TO READ AND REVIEW A. There are a few signs you need to watch for after you are home. Call [facility] if you notice any of the followin. Increased severe knee pain. Some pain is expected especially when you exercise. 2. Increased swelling in your leg or knee; pain or swelling of the calf muscle in either lower leg. 3. Any fluid drainage from the incision. 4. Shortness of breath or chest pain. B. Please call [facility] at if you have any concerns or questions about your operation or recovery. The doctor or his nurse will return your call promptly. C. You must take antibiotics before dental work, bladder, bowel or other surgery. Your doctor will provide you with a permanent care to carry describing this precaution. IMPORTANT: * REMEMBER TO TAKE ASPIRIN, 81 MG, TWICE DAILY FOR 4 WEEKS UNLESS OTHERWISE DIRECTED. THIS IS YOUR BLOOD THINNER. * HIGH RISK PATIENTS MAY BE PRESCRIBED A STRONGER BLOOD THINNER. THIS WILL BE PROVIDED AT DISCHARGE. * CALL IF INCREASED PAIN, REDNESS, DRAINAGE OR FEVER GREATER THAT 101. * WEAR KENNETH HOSE 20 HOURS PER DAY FOR 2 WEEKS. * DERMABOND Prineo- This is a mesh tape dressing that is covered with glue. It should remain in place until the incision is properly healed, usually 10-14 days. This dressing is designed to naturally slough off. You may trim the excess mesh tape as it peels off. Incision may be briefly wet in a shower. Dry immediately by blotting with a clean, dry towel. Do not bath or swim until instructed by your doctor. Do not scratch, rub, or pick at the dressing. Do not apply any topical ointments or lotions until dressing is completely removed and/or instructed by your doctor. There may be a small piece of suture material at one end of your incision. Do not pull or trim this. If it is bothersome or catching on clothing, you may cover it with a band-aid. FOLLOW UP VISIT: If appointment is not already scheduled: Please call [facility] to make a follow-up appointment for 2 weeks after your surgery at .
== END 2017-06-19 12:53 | disposition home health service (06) | DRG 470 ==
LOC: C.ACU 06:54 → C.3E 08:24 → ENRESERV 11:40
PROVIDERS: ADMIT Orthopaedic Surgery; ATTEND Orthopaedic Surgery
PROC: 0SRD0J9 Replacement of Left Knee Joint with Synthetic Substitute, Cemented, Open Approach (ICD-10-PCS; principal; 2017-06-17 09:45)
DX: M17.12 Unilateral primary osteoarthritis, left knee (principal); I10 Essential (primary) hypertension; E78.5 Hyperlipidemia, unspecified; F41.9 Anxiety disorder, unspecified; K21.9 Gastro-esophageal reflux disease without esophagitis; Z98.1 Arthrodesis status; Z96.651 Presence of right artificial knee joint

== ENCOUNTER → 2017-08-11 | Outpatient (CLI) | payer OTHER ==
[~2017-08-11] MED LIST changes: +ACET-24 PO; -ACET1TAB84 PO; -ACETAMINOPHEN 500 MG TAB PO SCH; +ASPEC81 PO; -BUPIVACAINE 0.5 % 5 MG/1 ML PF 10ML VIAL ONE; -CEFAZOLIN 2000MG IV PUSH 10 ML IV SCH; -CeleBREX 200 MG CAP PO SCH; -DEXAMETHASONE 4 MG TAB PO SCH; -DIPH-437 PO; -FAMOTIDINE 20 MG TAB PO SCH; -GABAPENTIN 300 MG CAP PO SCH; -LACTATED RINGER'S 1000ML 1,000 ML IV SCH; -LACTATED RINGER'S 1000ML 500 ML IV ONE; -LACTATED RINGER'S 1000ML IV SCH; -METOCLOPRAMIDE HCL 10 MG TAB PO SCH; -ROPIVACAINE 0.5% 5 MG/ML 30 ML VIAL ONE; -ROPIVACAINE 5MG/ML 30 ML 150 MG, BUPIVACAINE 0.5% MPF INJ 30 ML, EpINEphrine HCL INJ 0.... INFIL SCH; +RXC5 PO; +SENN-61 PO
--- NOTE | 2017-08-11 15:04 | MAMMOGRAPHY REPORT ---
BILATERAL DIGITAL SCREENING MAMMOGRAM TOMOSYNTHESIS WITH CAD: 08/11/2017 CLINICAL HISTORY: Routine screening. Patient has no complaints. TECHNIQUE: Breast tomosynthesis in addition to standard 2D mammography was performed. Current study was also evaluated with a Computer Aided Detection (CAD) system. COMPARISON: Comparison is made to exams dated: 08/09/2016 mammogram, 08/07/2015 mammogram, 08/03/2014 tony mogram, 08/02/2013 mammogram, 01/27/2013 mammogram, and 07/29/2012 ultrasound - [facility] nter. BREAST COMPOSITION: There are scattered areas of fibroglandular density in both breasts. FINDINGS: There is stable focal asymmetry in the right upper outer quadrant posteriorly, and a stable right-shaped biopsy marker clip in the right upper outer middle one third of the breast. No new carri picious mass, architectural distortion or cluster of microcalcifications is seen. IMPRESSION: ACR BI-RADS CATEGORY 1: NEGATIVE There is no mammographic evidence of malignancy. A 1 year screening mammogram is recommended. The pa tient will receive written notification of the results. Approximately 10% of breast cancers are not detected with mammography. A negative mammographic report should not delay biopsy if a clinically suggestive mass is present. Anali Echols M.D. ay/:08/11/2017 09:24:20 Historic Sites Supervisor: Steph LEON)([place]), [facility] letter sent: Normal 1/2 BI-RADS Code: ACR BI-RADS Category 1: Negative
== END | disposition home or self-care (01) ==
LOC: C.MAMM 07:25
PROVIDERS: ATTEND Obstetrics & Gynecology
DX: Z12.31 Encounter for screening mammogram for malignant neoplasm of breast (principal)